=== PATIENT | male | born 1940 | race Caucasian/White ===

== ENCOUNTER → 2018-01-25 | Emergency (ER) | payer OTHER ==
[~2018-01-25] VITALS: Ht 162.6 cm; Wt 67.6 kg
[~2018-01-25] MED LIST: ACTOS30 MG PO; AMPICILLIN500 MG/VIA IJ; DOLOGEN CAPLET1 EACH PO; GLYBURIDE MICRON6 MG; MEDROL4 MG PO; [UNRECOGNIZED DRUG - OTHER] PO
== END | disposition home or self-care (01) ==
LOC: ER 13:37
DX: L03.113 Cellulitis of right upper limb (principal)

== ENCOUNTER → 2020-06-10 | Outpatient (CLI) | payer OTHER | END | disposition home or self-care (01) | LOC: RAD 09:17 | DX: R13.19 Other dysphagia (principal) ==